=== PATIENT | female | born 1960 | race Caucasian/White ===

== ENCOUNTER 2016-11-14 20:54 | Emergency (ER) | payer BC ==
[2016-11-14 21:00] VITALS: BP 100/69
== END 2016-11-14 21:55 | disposition home or self-care (01) ==
LOC: ED 20:54
DX: M25.421 Effusion, right elbow (principal); E11.9 Type 2 diabetes mellitus without complications; I10 Essential (primary) hypertension; S00.83XA Contusion of other part of head, initial encounter; Z88.0 Allergy status to penicillin; W19.XXXA Unspecified fall, initial encounter; Y93.89 Activity, other specified; Y92.89 Other specified places as the place of occurrence of the external cause; Y99.8 Other external cause status